=== PATIENT | female | born 1955 | race Caucasian/White ===

== ENCOUNTER → 2018-10-24 | Outpatient (CLI) | payer OTHER ==
--- NOTE | 2018-10-24 10:57 | Diagnostic Imaging Report ---
Exam: Sacrum 2 views History: Low back pain Comparison: None. Findings: No acute displaced fracture or dislocation. Sacral foramina appear intact superiorly. Inferiorly the sacral body and coccyx are secured by rectal gas and stool on the frontal radiograph. Degenerative disc changes of the lower lumbar spine partially visualized. Atherosclerotic calcifications. Pelvic phleboliths. Impression: No acute osseous abnormality. Signed by: Dr. Arya Shrestha M.D. on 10/24/2018 10:54 AM
--- NOTE | 2018-10-24 11:02 | Diagnostic Imaging Report ---
Exam: Lumbar spine complete History: Low back pain Comparison: None. Findings: There are 5 nonrib-bearing lumbar-type vertebral bodies. No acute, displaced fracture or subluxation. Soft tissue, ligamentous, and spinal cord abnormalities cannot be excluded on the basis of plain radiography. Disc space narrowing, endplate sclerosis, and marginal osteophytosis from L3-4 through L5-S1. Bilateral facet arthropathy at L5-S1. SI joints are intact. Atherosclerotic vascular calcifications. No pars interarticularis defects are identified on the oblique radiographs. Impression: No acute osseous abnormality. Mild multilevel degenerative disc changes and facet arthropathy as above. Signed by: Dr. Arya Shrestha M.D. on 10/24/2018 10:59 AM
--- NOTE | 2018-10-24 12:02 | Diagnostic Imaging Report ---
EXAM: US ABDOMEN COMPLETE DATE: 10/24/2018 10:15 AM INDICATION: Abdominal pain COMPARISON: None TECHNIQUE: Transverse and longitudinal burgess scale and color doppler sonographic images of the upper abdomen were obtained. FINDINGS: LIVER 13.5 cm in the right midclavicular line. Normal echogenicity, normal contour, no masses. SPLEEN 7.4 cm in maximum diameter. Normal echogenicity, no masses. GALLBLADDER No stones, sludge, wall-thickening or pericholecystic fluid. Negative sonographic Srivastava's sign. BILE DUCTS No intra nor extra-hepatic biliary dilation. Common bile duct measures 0.3 cm PANCREAS: Visualized portions are normal. RIGHT KIDNEY: 10.5 cm Echogenicity: Normal Collecting System: No hydronephrosis Stones: None Cyst/Mass: None LEFT KIDNEY: 10.8 cm Echogenicity: Normal Collecting System: No hydronephrosis Stones: None Cyst/Mass: None VESSELS: Aorta: Nonaneurysmal Inferior Vena Cava: Patent Main Portal Vein: 1.0 cm, normal size with hepatopetal flow. FREE FLUID: None IMPRESSION: Unremarkable abdominal ultrasound. Signed by: Dr. Arya Shrestha M.D. on 10/24/2018 11:59 AM
== END ==
LOC: US 10:06
PROVIDERS: ATTEND Internal Medicine
DX: R10.9 Unspecified abdominal pain (principal); M54.5 Low back pain
CPT/HCPCS: 72110; 72220; 76700